=== PATIENT | male | born 1985 | race Caucasian/White ===

== ENCOUNTER 2021-02-19 22:39 | Emergency (ER) | payer MEDICAID ==
[~2021-02-19] VITALS: Ht 172.7 cm; Wt 72.6 kg
[2021-02-19 22:46] VITALS: BP 138/88
--- NOTE | 2021-02-20 05:13 | NUR ---
Patient discharged to home in stable condition. Written and verbal after care instructions given. Patient verbalizes understanding of instruction. ambulatory with a steady gait noted. pt aaox4 no acute distress noted, resp even and unlabored. advice pt not to drive or operate any machinery due to alcohol intoxication. pt verbalize understanding. pt denies being homeless and deneis SI/HI.
== END 2021-02-20 05:18 | disposition home or self-care (01) ==
LOC: ER 22:43
DX: F10.129 Alcohol abuse with intoxication, unspecified (principal); R51.9 Headache, unspecified; Y90.9 Presence of alcohol in blood, level not specified
CPT/HCPCS: 70450-TC; 82962-TC